=== PATIENT | male | born 1950 | race Caucasian/White ===

== ENCOUNTER 2019-03-12 19:30 | Outpatient (CLI) | payer MEDICARE | END 2019-03-12 19:31 | disposition home or self-care (01) | LOC: SLEEPLAB 19:30 | PROVIDERS: ATTEND Internal Medicine Critical Care Medicine | DX: G47.33 Obstructive sleep apnea (adult) (pediatric) (principal); I10 Essential (primary) hypertension; E11.9 Type 2 diabetes mellitus without complications | CPT/HCPCS: 95811 ==

== ENCOUNTER 2019-09-06 15:28 | Outpatient (CLI) | payer MEDICARE, OTHER ==
[2019-09-06 16:55] LABS: Hemoglobin 12.4 g/dL (14.0-18.0); Mean Corpuscular HGB CONC 32.3 g/dL (32.0-36.0); Mean Corpuscular Hemoglobin 29.8 pg (27.0-31.0); Mean Corpuscular Volume 92.4 fL (78.0-98.0); Mean Platelet Volume 7.5 fL (7.4-10.4); Platelet Count 259 thou/uL (130-400); RBC Distribution Width 12.9 % (11.5-14.5); Red Blood Cell (RBC) Count 4.17 mill/uL (4.70-6.10); White Blood Cell (WBC) Count 10.6 thou/uL (4.8-10.8)
[2019-09-06 17:17] LABS: Anion Gap 13 mmol/L (10-20); BUN (Urea Nitrogen) 20 mg/dL (8.4-25.7); Calc. Creatinine Clearance 0 mL/min (70-130); Calcium 9.1 mg/dL (7.8-10.44); Carbon Dioxide 25 mmol/L (23-31); Chloride 101 mmol/L (98-107); Estimated GFR-MDRD 44; Glucose 177 mg/dL (80-115); Potassium 4.4 mmol/L (3.5-5.1); Sodium 135 mmol/L (136-145)
[2019-09-07 11:52] LABS: SARS-CoV-2 MS2 Positive; SARS-CoV-2 N Gene Negative; SARS-CoV-2 S Gene Negative; SARS-CoV-2 orf1ab Negative
== END 2019-09-06 15:29 | disposition home or self-care (01) ==
LOC: LABBT 15:28
PROVIDERS: ATTEND Thoracic Surgery (Cardiothoracic Vascular Surgery)
DX: Z01.812 Encounter for preprocedural laboratory examination (principal); Z11.59 Encounter for screening for other viral diseases; I73.9 Peripheral vascular disease, unspecified
CPT/HCPCS: 80048; 85027; U0003; 87635

== ENCOUNTER 2019-09-08 05:56 | Day surgery (SDC) | payer MEDICARE ==
[2019-09-06 15:39] VITALS: BMI 29.9
[2019-09-08] MEDS ORDERED: Heparin 0 ML ONE (06:43)
[2019-09-08] MEDS ORDERED: Heparin 10,000 UNITS/1 ML VIAL ONE ×3 (08:28→08:50)
[2019-09-08] MEDS ORDERED: hydrALAZINE 20 MG/ML VIAL ONE ×2 (08:35→10:49)
[2019-09-08] MEDS ORDERED: Protamine Sulfate 50 MG/5 ML VIAL ONE (08:47)
[2019-09-08] MEDS ORDERED: Clopidogrel Bisulfate 300 MG TAB ONE (08:47)
[2019-09-08] MEDS ORDERED: Iopamidol 370 76% 50 ML VIAL FS ONE (09:39)
--- NOTE | 2019-09-08 14:13 | OP ---
DATE OF PROCEDURE: 09/08/2019 PREOPERATIVE DIAGNOSIS: Ischemic ulcer, right foot. POSTOPERATIVE DIAGNOSIS: Ischemic ulcer, right foot. PROCEDURE PERFORMED: Aortogram, bilateral lower extremity runoff with angioplasty and stenting of the right popliteal artery with a 6 x 40 Innova posted with a 5 mm balloon. DESCRIPTION OF PROCEDURE: After prepping and draping the left groin, ultrasound-guided puncture was performed and a 5-Japanese dilator and sheath placed over a wire with some resistance due to scar tissue in the groin. Contra catheter was then advanced into the aorta, where an aortoiliac angiography obtained and then the Contra with the help of a PureForge guidewire was advanced into the right common femoral artery, where runoff of the right leg was obtained. Following this, the Contra catheter was removed over a wire and a 6-Japanese Destination sheath advanced over the iliac bifurcation into the proximal common femoral artery. After heparinization, the fem-pop graft on the right was utilized to advance a wire into the distal popliteal artery below the knee. A 3 x 60 mustang balloon was used to pre-dilate the stenosis, following which a 5 x 40 balloon was used to dilate the stenosis. Result was suboptimal, and a 6 x 40 Innova stent was then deployed and posted with a 5 mm balloon. Result was satisfactory. FINDINGS: Both hypogastric arteries are occluded and both common and external iliac arteries are patent. Right common femoral and right profunda are widely patent with a patent fem-pop graft to a popliteal artery above the knee, where there were 2 high-grade stenosis in the 70% and 90% range. Following which, there was single-vessel runoff via the anterior tibial, which had its own stenosis of about 70%. Following completion of stenting, there was no residual stenosis in the popliteal artery. Stent was deployed above the knee joint. The left common femoral was widely patent from previous endarterectomy and the left SFA was patent with high-grade disease, and then, fairly normal popliteal artery below the knee. Profunda femoral artery had a high-grade stenosis about a centimeter from its origin. Job ID: [id number]
== END 2019-09-08 15:16 | disposition home or self-care (01) ==
LOC: CCL 05:56
PROVIDERS: ATTEND Thoracic Surgery (Cardiothoracic Vascular Surgery)
PROC: 047M3DZ Dilation of Right Popliteal Artery with Intraluminal Device, Percutaneous Approach (ICD-10-PCS; principal; 2019-09-08)
DX: E11.51 Type 2 diabetes mellitus with diabetic peripheral angiopathy without gangrene (principal); L97.519 Non-pressure chronic ulcer of other part of right foot with unspecified severity; I70.235 Atherosclerosis of native arteries of right leg with ulceration of other part of foot; I70.202 Unspecified atherosclerosis of native arteries of extremities, left leg; G47.30 Sleep apnea, unspecified; M19.90 Unspecified osteoarthritis, unspecified site; I11.9 Hypertensive heart disease without heart failure; E11.40 Type 2 diabetes mellitus with diabetic neuropathy, unspecified; Z87.891 Personal history of nicotine dependence; Z79.02 Long term (current) use of antithrombotics/antiplatelets; Z79.4 Long term (current) use of insulin; Z79.82 Long term (current) use of aspirin; Z79.899 Other long term (current) drug therapy; Z88.0 Allergy status to penicillin; Z95.1 Presence of aortocoronary bypass graft; Z90.2 Acquired absence of lung [part of]; Z95.820 Peripheral vascular angioplasty status with implants and grafts
CPT/HCPCS: 36416; 37226; 76942; C1725; C1769; J0360; J1644; J2720; Q9967

== ENCOUNTER 2019-10-12 20:24 | Inpatient (IN) | payer MEDICARE, OTHER ==
[~2019-10-12 20:24] MED LIST: Heparin 1,000 UNITS/ML VIAL ONE
[2019-10-12] MEDS ORDERED: Cefepime 2 GM VIAL ONE (21:22)
[2019-10-12] MEDS ORDERED: Vancomycin HCl 1.25 GM in Sodium Chloride 0.9% 250 ML 250 ML IVPB SCH (21:30)
[2019-10-12 21:59] LABS: #Lymphocytes 2.2 thou/uL (1.20-3.40); #Monocytes 1.5 thou/uL (0.11-0.59); #Neutrophils 15.1 thou/uL (1.40-6.50); %Basophils 0.2 % (0.0-1.0); %Eosinophils 0.1 % (0.0-10.0); %Lymphocytes 11.7 % (21.0-51.0); %Monocytes 7.7 % (0.0-10.0); %Neutrophils 80.3 % (42.0-75.0); Mean Corpuscular HGB CONC 32.8 g/dL (32.0-36.0); Mean Corpuscular Hemoglobin 29.2 pg (27.0-31.0); Platelet Count 313 thou/uL (130-400); RBC Distribution Width 12.7 % (11.5-14.5); Red Blood Cell (RBC) Count 3.09 mill/uL (4.70-6.10); White Blood Cell (WBC) Count 18.8 thou/uL (4.8-10.8)
--- NOTE | 2019-10-12 22:07 | RAD ---
EXAM: CHEST ONE VIEW HISTORY: Dyspnea, weakness, and fever. Vomiting. COMPARISON: 10/13/2018. FINDINGS: A marker for this chest x-ray was not provided as to the correct side. However, there was evidence of a left-sided aortic arch on prior exam. Postoperative changes related to median sternotomy are again seen. Cardiac silhouette is magnified by projection, but the cardiac silhouette does appear mil dly enlarged. Pulmonary vasculature is within normal limits. Lungs are clear. No other interval change. IMPRESSION: No acute cardiopulmonary process.
--- NOTE | 2019-10-12 22:11 | RAD ---
Exam: XR Foot Rt 3 View STANDARD HISTORY: Fever. Infection right foot. COMPARISON: None FINDINGS: There is subcutaneous soft tissue swelling seen anterior to the right ankle and along the right anter olateral aspect of the mid foot. There is suggestion of a soft tissue defect likely related to wound at the lateral aspect of the midfoot with subcutaneous emphysema seen which may be related to t he wound versus gas-forming organism. No fracture is seen. No osseous irregularity is identified to suggest osteomyelitis based on radiographic evaluation. Vasc ular calcifications are seen at the distal ankle and involving the foot. IMPRESSION: Subcutaneous soft tissue swelling and subcutaneous emphysema involving the right anterolateral aspect of the ankle and midfoot. Subcutaneous emphysema may be attributable to what appears to be a soft tissue defect/wound at the lateral aspect of the right midfoot. Subcutaneous emphysema related to gas -forming organism is a possibility. No definite acute osseous abnormality is seen.
[2019-10-12 22:21] LABS: ALT (SGPT) 13 U/L (8-55); AST (SGOT) 18 U/L (5-34); Albumin 3.1 g/dL (3.4-4.8); Alkaline Phosphatase 87 U/L (40-110); Anion Gap 12 mmol/L (10-20); BUN (Urea Nitrogen) 22 mg/dL (8.4-25.7); Bilirubin, Total 0.3 mg/dL (0.2-1.2); Calc. Creatinine Clearance 0 mL/min (70-130); Carbon Dioxide 19 mmol/L (23-31); Chloride 100 mmol/L (98-107); Estimated GFR-MDRD 46; Glucose 215 mg/dL (80-115); Potassium 3.5 mmol/L (3.5-5.1); Protein, Total 7.1 g/dL (5.8-8.1); Sodium 127 mmol/L (136-145)
[2019-10-12 22:43] LABS: CKMB 1.2 ng/mL (0-6.6)
--- NOTE | 2019-10-12 22:44 | PDOC.HHP ---
Hospitalist HPI - History of Present Illness Fever History of Present Illness: 69yo male with CAD s/p CABG, DMII, HTN, PVD, CHF presents for fever. His neighbor found him down. Reports he fell due to weakness and fatigue. No LOC, did not hit his head. He started feeling bad last and running a fever. SOB has slowly progressed. Also reports left sided chest pain. Not worse with exertion. Endorses fever and chills. Temp of 103.4 today. Denies cough, loss of smell/taste. Unsure if he has orthopnea or paroxysmal dyspnea. He has a wound on his right foot. Reports his PCP sent him in some antibiotics today but he did not pick them up. Hospitalist Results - Labs Result Diagrams: 10/12/19 21:31 10/12/19 21: Lab results: WBC 18.8 thou/uL (4.8-10.8) H 10/12/19 21:31 Hgb 9.0 g/dL (14.0-18.0) L 10/12/19 21: Hct 27.5 % (42.0-52.0) L 10/12/19 21: MCV 89.0 fL (78.0-98.0) 10/12/19 21: Plt Count 313 thou/uL (130-400) 10/12/19 21: Neutrophils % 80.3 % (42.0-75.0) H 10/12/19 21:31 ESR Westergren 72 mm/hr (Less than 20) 10/12/19 21: Sodium 127 mmol/L (136-145) L 10/12/19 21: Potassium 3.5 mmol/L (3.5-5.1) 10/12/19 21: Chloride 100 mmol/L (98-107) 10/12/19 21: Carbon Dioxide 19 mmol/L (23-31) L 10/12/19 21: BUN 22 mg/dL (8.4-25.7) 10/12/19 21: Creatinine 1.52 mg/dL (0.7-1.3) H 10/12/19 21:31 Glucose 215 mg/dL (80-115) H 10/12/19 21:31 Lactic Acid 1.0 mmol/L (0.5-2.2) 10/12/19 21:31 Calcium 8.0 mg/dL (7.8-10.44) 10/12/19 21: Total Bilirubin 0.3 mg/dL (0.2-1.2) 10/12/19 21:31 AST 18 U/L (5-34) 10/12/19 21: ALT 13 U/L (8-55) 10/12/19 21: Alkaline Phosphatase 87 U/L (40-110) 10/12/19 21: Troponin I 0.110 ng/mL (< 0.028) H 10/12/19 21:31 B-Natriuretic Peptide 138.5 pg/mL (0-100) H 10/12/19 21:31 Serum Total Protein 7.1 g/dL (5.8-8.1) 10/12/19 21: Albumin 3.1 g/dL (3.4-4.8) L 10/12/19 21:31
[2019-10-12] MEDS ORDERED: Vancomycin 1 GM in Premix Bag 1 BAG IVPB SCH (23:45)
[2019-10-12] MEDS ORDERED: Senokot S 8.6-50 MG TAB PO PRN (23:52)
[2019-10-12] MEDS ORDERED: HYDROcodone/Acetaminophen 5/325 mg Tablet PO PRN (23:52)
[2019-10-12] MEDS ORDERED: Ondansetron ODT 4 MG TAB PO PRN (23:52)
[2019-10-12] MEDS ORDERED: Calcium Carbonate 500 MG ChewTAB PO PRN (23:52)
[2019-10-13] MEDS ORDERED: Dextrose 5% in Water 1,000 ML IV PRN
[2019-10-13] MEDS ORDERED: Dextrose 50% Abboject 50 ML SYRINGE SLOW IVP PRN
[2019-10-13] MEDS ORDERED: Aspirin 325 MG TAB PO SCH (00:30)
[2019-10-13] MEDS: Sodium Chloride 0.9% 1,000 ML IV SCH ×2 (01:31→12:16)
--- NOTE | 2019-10-13 01:50 | HP ---
PRIMARY CARE PHYSICIAN: Dr. Freeman at [facility]. CHIEF COMPLAINT: Fever and generalized weakness. HISTORY OF PRESENT ILLNESS: The patient is a 69-year-old male with past medical history for diabetes, type 2, insulin dependent; PVD; CAD; hypertension; hyperlipidemia; CHF; who presents for the above complaint. The patient reports a history of nonhealing diabetic foot ulcer to the right medial aspect of his right foot for the past 2 years. He has been seeing Wound Care Therapy approximately once every 3 weeks. He reports that he last saw them about a week ago. He reports over the last week that he has been feeling generally weak. He noticed that he has been having chills. He believes associated subjective fever. This has been going on since last . He reports that he became so weak today, actually laid down on the floor of his trailer. His neighbor happened to come over and found him on the ground. He says he was there for approximately 1 hour. He denies that he hit his head. He denies any LOC. He denies any vomiting. He reports that he simply laid down, because he was too weak to even walk. He called his PCP this morning, who prescribed antibiotics, which he was unable to fill the prescription. He also reports some associated chest pain and shortness of breath for approximately one week. Chest pain is located mid sternal and left sided, describes as a squeezing pressure. It is intermittent. Exacerbated and relieved by nothing. He denies any lightheadedness. He denies any heart palpitation or lower extremity swelling. He denies any recent cough. Currently on exam, his chest pain is resolved. For the above reasons, his neighbor called EMS. When EMS arrived on the scene, the patient was febrile with 103.1 temperature, hypotensive and tachycardic. Initially, he was given 2 L normal saline, 1 g Tylenol. After given IV fluids, his blood pressure improved. In the ER, EKG was normal sinus rhythm, heart rate 77 with PACs. Initial troponin 0.110. CK-MB is 1.2. BNP was 138.5. Chest x-ray was negative for any acute process. The patient had a white blood cell count of 18.8. His sedimentation rate was 72. Lactic acid was 1.0. X-ray of his right foot showed subcutaneous soft tissue swelling and subcutaneous emphysema involving the right anterolateral aspect of the ankle and midfoot. Subcutaneous emphysema may be attributable to what appears to be a soft tissue defect or wound at the lateral aspect of the right mid-foot; however, subcutaneous emphysema related to gas-forming organisms is a possibility. No definite acute osseous abnormality is seen. The patient also had a sodium of 127, glucose of 205, and a creatinine of 1.52. The patient was given vancomycin and cefepime IV piggyback, and will be admitted to the floor. PAST MEDICAL HISTORY: 1. CAD x2 stents. 2. CABG x3. 3. Diabetes, type 2, insulin dependent. 4. Hypertension. 5. Hyperlipidemia. 6. PVD x1 stent in the right lower extremity. 7. CHF. PAST SURGICAL HISTORY: 1. CABG x3 in 2004. 2. Left foot partial amputation. SOCIAL HISTORY: The patient lives in [place] alone in a trailer. He is a former tobacco user, quit 10 years ago. Denies any illicit drug use. Denies any alcohol intake. He normally walks, ambulates without any assistive devices, but over the past several days, was using a wheelchair. FAMILY HISTORY: Noncontributory for cardiac disease, contributory for diabetes. ALLERGIES: PENICILLIN. HOME MEDICATIONS: The patient was unable to reconcile home medications at bedside. REVIEW OF SYSTEMS: All review of systems are negative unless otherwise stated in the HPI. PHYSICAL EXAMINATION: VITAL SIGNS: Temperature 100.1, blood pressure 139/69, pulse 82, respirations 18, and 97% on room air. Pain scale, 6/10. CONSTITUTIONAL: The patient is alert and oriented to person, place, and time. In no acute distress. Appears uncomfortable. HEAD: Atraumatic and normocephalic. EYES: Pupils are equal, round, and reactive to light. Extraocular muscles are intact. ENT: Nose, normal exam, no nasal deformity, no bleeding from the nares. Oropharynx is clear. Uvula, midline. Dry mucous membranes. No oral lesions. NECK: Supple. Trachea midline. No JVD. No cervical adenopathy. No neck stiffness. RESPIRATORY: Respirations are regular, even, and nonlabored. No wheezes, rhonchi, or rales. CARDIOVASCULAR: S1, S2. Regular rate and rhythm. No murmurs, rubs, or gallops. ABDOMEN: Soft, nontender. Active bowel sounds. No peritoneal signs. No rigidity. No guarding. No rebound. BACK: Full range of motion. No central spinous tenderness. No CVA tenderness. UPPER EXTREMITIES: Bilateral upper extremities, full range of motion, normal strength, sensation intact, palpable radial pulses. Lower extremities, the left foot has a partial amputation. Skin is clean, dry, and intact. Right foot has a nonhealing diabetic foot ulcer to the right medial aspect of the mid-foot, approximately 6 x 4 cm. It is malodorous with purulent drainage. NEUROLOGIC: Alert and oriented to person, place, and time. Speech normal. No focal deficits. No sensory deficits. SKIN: Clean, dry, and intact. PSYCHIATRIC: Normal affect. The patient is alert and oriented to person, place , and time. DIAGNOSTIC AND LABORATORY DATA: EKG, normal sinus rhythm at 77 with some PACs. Troponin 0.110. CK-MB 1.2. BNP 138.5. Chest x-ray, negative for any acute process. Sodium 127, potassium 3.5, chloride 100, CO2 19, BUN 22, creatinine 1.52, glucose 215. Lactic acid 1.0, T bilirubin 0.3, AST 18, ALT 13, alkaline phosphatase 87, albumin 3.1. WBCs 18.8, hemoglobin 9, hematocrit 27.5, platelets 313. X- ray of the right foot, subcutaneous soft tissue swelling and subcutaneous emphysema involving the right anterolateral aspect of the ankle and mid-foot, which may be attributable to soft tissue defect or wound at the right midfoot, but cannot exclude gas-forming organism. IMPRESSION AND PLAN: 1. Nonhealing diabetic foot ulcer. We will admit the patient to the telemetry floor for inpatient status. Expected length of stay greater than 2 midnights. The patient initially presented febrile, hypotensive. Lactic acid was 1.0, WBCs 18.8, ESR 72. X-ray of right foot, positive for subcutaneous emphysema and soft tissue swelling. Blood cultures and urine cultures are pending. We will continue vancomycin and cefepime. We will consult General Surgery and Wound Care. Order MRI and a CRP. Make the patient n.p.o. after midnight. We will continue IV fluid resuscitation, analgesics p.r.n. 2. Right foot cellulitis, likely secondary to problem #1. 3. Chest pain. On exam, the patient's chest pain was resolved. The patient's HEART score of 3, low risk. Chest pain has been ongoing for one week. Initial troponin 0.110. CK-MB 1.2. BNP 138.5. Chest x-ray negative for any acute process. EKG was normal sinus rhythm at [address] elevations. Most likely demand ischemia will trend troponins and treat accordingly. 4. Hyponatremia. The patient presented with sodium of 127, corrected for glucose of 205. Sodium corrected was 129. We will continue IV fluid hydration. We will recheck labs in the a.m. 5. Acute kidney injury. The patient presented with a creatinine of 1.52, baseline appears to be one other number of 1.57 in August. We will continue IV fluid hydration, and we will recheck in a.m. 6. Diabetes, type 2, insulin dependent. The patient reports taking 45 units of Levemir at night and 50 units in the a.m. The patient presented with a glucose of 205. The patient will be n.p.o. after midnight. We will hold insulin for now. We will start aggressive sliding scale with Accu-Cheks a.c. and at bedtime. 7. Peripheral vascular disease. The patient reports a single stent below the right knee. 8. Coronary artery disease. 9. Congestive heart failure. 10. Heparin for deep venous thrombosis prophylaxis. Protonix for gastrointestinal prophylaxis. The patient is a full code. BRE is his brother, Stevie Tracy, he did not give the telephone number. Discussed the case with Dr. Rosas Odom. Job ID: [id number] MTDD
[2019-10-13 01:55] LABS: Troponin I 0.103 ng/mL (< 0.028)
[2019-10-13 04:55] LABS: #Lymphocytes 2.5 thou/uL (1.20-3.40); #Monocytes 1.2 thou/uL (0.11-0.59); #Neutrophils 11.2 thou/uL (1.40-6.50); %Basophils 0.3 % (0.0-1.0); %Eosinophils 0.1 % (0.0-10.0); %Lymphocytes 16.9 % (21.0-51.0); %Monocytes 8.1 % (0.0-10.0); %Neutrophils 74.6 % (42.0-75.0); Hemoglobin 10.9 g/dL (14.0-18.0); Mean Corpuscular HGB CONC 32.2 g/dL (32.0-36.0); Mean Corpuscular Hemoglobin 29.1 pg (27.0-31.0); Mean Corpuscular Volume 90.4 fL (78.0-98.0); Platelet Count 252 thou/uL (130-400); Red Blood Cell (RBC) Count 3.73 mill/uL (4.70-6.10)
[2019-10-13 05:00] LABS: INR-International Normal Ratio 1.3
[2019-10-13 05:35] LABS: Anion Gap 13 mmol/L (10-20); BUN (Urea Nitrogen) 20 mg/dL (8.4-25.7); Calc. Creatinine Clearance 69 mL/min (70-130); Calcium 8.2 mg/dL (7.8-10.44); Carbon Dioxide 19 mmol/L (23-31); Chloride 107 mmol/L (98-107); Estimated GFR-MDRD 54; Glucose 181 mg/dL (80-115); Potassium 3.4 mmol/L (3.5-5.1); Sodium 136 mmol/L (136-145)
[2019-10-13 05:40] LABS: Troponin I 0.104 ng/mL (< 0.028)
[2019-10-13] MEDS: Aspirin 81 mg Enteric Coated Tablet PO SCH (08:19)
[2019-10-13] MEDS: Heparin 5,000 UNITS/ML VIAL SC SCH ×2 (08:20→20:30)
[2019-10-13] MEDS ORDERED: Prevnar 13-Val Conj/PF 0.5 ML SYRINGE IM ONE (09:00)
[2019-10-13] MEDS: Vancomycin HCl 750 MG in Sodium Chloride 0.9% 250 ML 250 ML IVPB SCH ×2 (09:17→20:30)
[2019-10-13] MEDS: Cefepime 2 GM in Sodium Chloride 0.9% 100 ML IVPB SCH ×2 (11:02→23:18)
[2019-10-13 14:27] LABS: SARS-CoV-2 MS2 Positive; SARS-CoV-2 N Gene Negative; SARS-CoV-2 S Gene Negative; SARS-CoV-2 orf1ab Negative
--- NOTE | 2019-10-13 16:12 | MRI ---
MRI Lower Ext Jt Rt WO Con History: Osteomyelitis Comparison: Radiograph prior day Findings: Bones: No abnormal focal area of marrow signal replacement to suggest osteomyelitis. Muscles: Abnormal edema throughout the musculature of the foot, likely diabetic myositis. Evaluation for pyomyositis is limited without intravenous contrast. There is extrusion of the abductor hallucis muscle belly through dillon soft tissue defect with overlying soft tissue gas and irregularity the muscle belly. There Is also partial tear of the myotendinous junction abductor hallucis muscle. Tendons: Abnormal gas along the tibialis anterior tendon sheath from the medial cuneiform/first metat arsal insertion tracking along the midfoot and hindfoot. This is also seen extending to the ankle. Further propagation is not excluded although as not definitively seen on the prior radiograph. Soft tissues: Deep ulcer medial plantar midfoot at the great toe tarsometatarsal joint. Impression: 1. No evidence for osteomyelitis. 2. Relatively deep soft tissue ulcer medial aspect of the midfoot at the tarsometatarsal joint. There is herniation of abductor hallucis muscle through this defect with myotendinous tearing and associated myositis containing small foci of gas. 3. Given the close proximity of the defect with the tibialis anterior tendon, there is tracking of ga s along the tibialis anterior anterior tendon sheath from the forefoot through the mid and hindfoot to the level of the ankle. 4. Global intrinsic muscle diabetic myositis. 5. 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
--- NOTE | 2019-10-13 17:25 | PDOC.HOSPP ---
- Subjective Encounter Date: 10/13/19 Subjective: patient seen on f/u for diabetic foot, pt refers feels ok denies fever chills or nausea - Objective Vital Signs & Weight: Vital Signs (12 hours) Temp Pulse Pulse Resp BP BP Pulse Ox 10/13/19 17:04 97.6 F 73 14 175/77 H 99 10/13/19 15:11 70 176/75 H 10/13/19 12:10 99.6 F 73 18 156/72 H 100 10/13/19 08:20 98.2 F 62 18 100/63 96 Weight Admit Weight 197 lb 3.2 oz Weight 236 lb 9.6 oz I&O: 10/12/19 10/13/19 10/14/19 06:59 06:59 06:59 Intake Total 350 Output Total 775 700 Balance -775 -350 Result Diagrams: 10/13/19 04:44 10/13/19 04:44 Additional Labs: Accuchecks 10/13/19 12:51 POC Glucose 137 H Hospitalist ROS - Review of Systems All other systems reviewed; all pertinent +/- noted in HPI/Subj - Medication Medications: Active Medications Generic Name Dose Route Start Last Admin Trade Name Freq PRN Reason Stop Dose Admin Aspirin 81 mg 10/13/19 09:00 10/13/19 08:19 Ecotrin PO 81 mg DAILY VERÓNICA Administration Heparin Sodium (Porcine) 5,000 units 10/13/19 09:00 10/13/19 08:20 Heparin SC 5,000 units BID VERÓNICA Administration Sodium Chloride 1,000 mls @ 75 mls/hr 10/12/19 23:59 10/13/19 12:16 Normal Saline 0.9% IV 1,000 mls .[id number] VERÓNICA Administration Cefepime HCl 2 gm/ Sodium 100 mls @ 200 mls/hr 10/13/19 10:00 10/13/19 11:02 Chloride IVPB 100 mls 1000,2200 VERÓNICA Administration Vancomycin HCl 750 mg/ Sodium 250 mls @ 250 mls/hr 10/13/19 08:00 10/13/19 09 :17 Chloride IVPB 250 mls 0800,2000 VERÓNICA Administration - Exam General Appearance: NAD, awake alert Eye: PERRL, anicteric sclera ENT: normocephalic atraumatic, no oropharyngeal lesions Neck: supple, symmetric, no JVD Heart: RRR, no murmur, no gallops Respiratory: CTAB, no wheezes, no rales Gastrointestinal: soft, non-tender, non-distended Extremities: no cyanosis, no clubbing Extremities - other findings: b/l ulcers Skin: normal turgor, no lesions Neurological: cranial nerve grossly intact, normal sensation to touch Musculoskeletal: normal tone, normal strength Psychiatric: normal affect, normal behavior, A&O x 3 Hosp A/P (1) Diabetic foot infection Code(s): E11.628 - TYPE 2 DIABETES MELLITUS WITH OTHER SKIN COMPLICATIONS; L08.9 - LOCAL INFECTION OF THE SKIN AND SUBCUTANEOUS TISSUE, UNSP Status: Acute (2) Diabetes Code(s): E11.9 - TYPE 2 DIABETES MELLITUS WITHOUT COMPLICATIONS Status: Acute (3) HTN (hypertension) Code(s): I10 - ESSENTIAL (PRIMARY) HYPERTENSION Status: Acute (4) KINSEY (acute kidney injury) Code(s): N17.9 - ACUTE KIDNEY FAILURE, UNSPECIFIED Status: Acute (5) Hyponatremia Code(s): E87.1 - HYPO-OSMOLALITY AND HYPONATREMIA Status: Acute (6) Cellulitis Code(s): L03.90 - CELLULITIS, UNSPECIFIED Status: Acute - Plan - continue vanc + cefe - surgery consulted will follow recommendations - wound care - continue accuchecks, ss and long acting insulin - hyponatremia resolved - renal function improving continue ivfs f/u bmps - b/c negative - wound culture multiple organism low sensitivity - mri w/o OM, gas present, surgery was consulted - troponin mildly elevated, stable w/o trending up likely leak due to infection & kinsey - blood pressure uncontrolled will add amlodipine, will follow and adjust as necessary
[2019-10-13] MEDS: Gabapentin 300 MG CAP PO SCH (20:30)
[2019-10-13] MEDS: HumaLOG 300 UNITS/3 ML VIAL SC PRN (20:31)
[2019-10-13] MEDS: HYDROcodone/Acetaminophen 5/325 mg Tablet PO PRN (20:54)
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
[2019-10-14] MEDS: Acetaminophen 325 MG TAB PO PRN ×2 (03:38→16:13)
[2019-10-14 04:50] LABS: Hemoglobin A1c 11.4 % (4.0-6.0)
[2019-10-14 05:06] LABS: Anion Gap 13 mmol/L (10-20); BUN (Urea Nitrogen) 14 mg/dL (8.4-25.7); Calc. Creatinine Clearance 81 mL/min (70-130); Calcium 7.8 mg/dL (7.8-10.44); Carbon Dioxide 20 mmol/L (23-31); Chloride 101 mmol/L (98-107); Estimated GFR-MDRD 53; Glucose 301 mg/dL (80-115); Potassium 3.5 mmol/L (3.5-5.1); Sodium 130 mmol/L (136-145)
[2019-10-14] MEDS: HumaLOG 300 UNITS/3 ML VIAL SC PRN ×2 (06:32→21:32)
[2019-10-14 06:50] LABS: Band 9 % (5-11); Hemoglobin 10.5 g/dL (14.0-18.0); Lymphocytes 30 % (21-51); MDiff Complete? YES; Mean Corpuscular HGB CONC 32.5 g/dL (32.0-36.0); Mean Corpuscular Hemoglobin 29.2 pg (27.0-31.0); Mean Corpuscular Volume 89.8 fL (78.0-98.0); Mean Platelet Volume 7.8 fL (7.4-10.4); Monocytes 6 % (0-10); Myelocyte 2 % (0-0); Neutrophil 53 % (42-75); Platelet Count 275 thou/uL (130-400); RBC Distribution Width 13.1 % (11.5-14.5)
[2019-10-14 07:13] LABS: Vancomycin, Trough 11.2 ug/mL
[2019-10-14] MEDS: Sodium Chloride 0.9% 1,000 ML IV SCH (08:44)
[2019-10-14] MEDS: Aspirin 81 mg Enteric Coated Tablet PO SCH (08:52)
[2019-10-14] MEDS: Heparin 5,000 UNITS/ML VIAL SC SCH ×2 (08:52→21:27)
[2019-10-14] MEDS: Amlodipine 10 MG TAB PO SCH (08:52)
[2019-10-14] MEDS: Gabapentin 300 MG CAP PO SCH ×2 (08:52→14:44)
[2019-10-14] MEDS ORDERED: Vancomycin 1 GM in Premix Bag 1 BAG IVPB SCH (09:00)
[2019-10-14] MEDS: Vancomycin HCl 750 MG in Sodium Chloride 0.9% 250 ML 250 ML IVPB SCH (09:01)
[2019-10-14] MEDS: Cefepime 2 GM in Sodium Chloride 0.9% 100 ML IVPB SCH ×2 (10:57→23:25)
[2019-10-14] MEDS: HumaLOG 300 UNITS/3 ML VIAL SC SCH ×2 (12:10→17:43)
--- NOTE | 2019-10-14 12:44 | PRG ---
DATE OF SERVICE: 10/14/2019 SUBJECTIVE: Mr. Tracy is seen today in his bed on the telemetry floor with the Wound Care Team. The ulcer on the medial aspect of his right foot is again examined. There is a liquefactive necrosis in some of the tissue to the anterior aspect of the wound. This was sharply debrided/excised using a scalpel. I debrided the skin, subcutaneous tissue, fascia, tendon, and muscle. There was again no foul smell within the wound, nor was there definite purulence. It was undermined under the skin anteriorly extending for about 1.5 cm. To allow appropriate wound care of this, I therefore opened the skin sharply. This was done without anesthetic as he has a dense neuropathy. Bone was not exposed; however, there is minimal tissue overlying the bones of the midfoot. I also checked the pulses with the Doppler. He has weakly monophasic signals of both the dorsalis pedis and posterior tibial with the Doppler. There are no palpable pulses. Since Dr. Perea did a vascular intervention on him about a month ago, I will make him aware of this on Wednesday when he returns. For today, the wound was packed with a gauze as I felt that there may be some bleeding from the fresh incisions if we placed a wound VAC. I will ask Wound Care Team to place a wound VAC tomorrow. OBJECTIVE: On examination, he does have an elevated temperature of 100.3, pulse of 77, and blood pressure of 146/70. LABORATORY DATA: Decreasing white blood cell count, that is 12.0 today, with a hemoglobin of 10.5. Chemistries show essentially stable electrolytes with significantly elevated blood sugars. His hemoglobin A1c is markedly elevated at 11.4. PLAN: I would continue antibiotics and wound care for now. He may end up requiring discharge to a facility to allow for appropriate care as I am uncertain that he is able to care for himself appropriately at his trailer home where he lives by himself. Job ID: [id number]
--- NOTE | 2019-10-14 15:26 | PDOC.HOSPP ---
- Subjective Encounter Date: 10/14/19 Encounter Time: 08:00 Subjective: no overnight events. this morning, complains of increased peripheral burning pain. has no other complaints. Pending placement in snf assuming no further intervention - Objective Vital Signs & Weight: Vital Signs (12 hours) Temp Pulse Resp BP Pulse Ox 10/14/19 12:43 98.6 F 96 14 120/71 96 10/14/19 08:52 77 10/14/19 07:12 97 10/14/19 07:08 100.3 F H 77 14 146/70 H 98 10/14/19 03:41 100.1 F H 82 18 163/74 H 96 Weight Admit Weight 197 lb 3.2 oz Weight 236 lb 3.2 oz I&O: 10/13/19 10/14/19 10/15/19 06:59 06:59 06:59 Intake Total 1350 Output Total 775 1600 Balance -185 -696 Result Diagrams: 10/14/19 04:35 10/14/19 04:35 Additional Labs: Accuchecks 10/14/19 10/14/19 10/13/19 10:33 05:49 20:23 POC Glucose 278 H 336 H 299 H 10/13/19 16:55 POC Glucose 149 H Hospitalist ROS - Review of Systems Constitutional: denies: fever, chills, sweats, weakness, malaise, other Respiratory: denies: cough, dry, shortness of breath, hemoptysis, SOB with excertion, pleuritic pain, sputum, wheezing, other Cardiovascular: denies: chest pain, palpitations, orthopnea, paroxysmal noc. dyspnea, edema, light headedness, other Gastrointestinal: denies: nausea, vomiting, abdominal pain, diarrhea, constipation, melena, hematochezia, other - Medication Medications: Active Medications Generic Name Dose Route Start Last Admin Trade Name Freq PRN Reason Stop Dose Admin Acetaminophen 650 mg 10/12/19 23:52 10/14/19 03:38 Tylenol PO 650 mg Q4H PRN Administration Headache/Fever/Mild Pain (1-3) Hydrocodone Bitart/Acetaminophen 2 tab 10/12/19 23:52 10/13/19 20:54 [place] 5/325 PO 2 tab Q4H PRN Administration Severe Pain (7-10) Amlodipine Besylate 10 mg 10/14/19 09:00 10/14/19 08:52 Norvasc PO 10 mg DAILY VERÓNICA Administration Aspirin 81 mg 10/13/19 09:00 10/14/19 08:52 Ecotrin PO 81 mg DAILY VERÓNICA Administration Gabapentin 300 mg 10/13/19 21:00 10/14/19 14:44 Neurontin PO 300 mg TID VERÓNICA Administration Heparin Sodium (Porcine) 5,000 units 10/13/19 09:00 10/14/19 08:52 Heparin SC 5,000 units BID VERÓNICA Administration Cefepime HCl 2 gm/ Sodium 100 mls @ 200 mls/hr 10/13/19 10:00 10/14/19 10:57 Chloride IVPB 100 mls 1000,2200 VERÓNICA Administration Vancomycin HCl 1 gm/ Device 200 mls @ 200 mls/hr 10/14/19 09:00 10/14/19 08: 48 IVPB 200 mls 0900,2100 VERÓNICA Administration Insulin Human Lispro 0 units 10/13/19 00:00 10/14/19 06:32 Humalog SC 11 unit .AGGRESSIVE SLIDING PRN Administration Aggressive Correctional Scale Insulin Human Lispro 0 units 10/13/19 00:00 10/13/19 20:31 Humalog SC 3 unit .BEDTIME SLIDING SC PRN Administration Bedtime Correctional Scale Insulin Human Lispro 10 units 10/14/19 12:00 10/14/19 12:10 Humalog SC 10 unit TID-WM VERÓNICA Administration - Exam General Appearance: NAD, awake alert Neck: no JVD Heart: RRR, no murmur, no gallops, no rubs Respiratory: CTAB, no wheezes, no rales, no ronchi Gastrointestinal: soft, non-tender, non-distended, normal bowel sounds Extremities - other findings: clean gauze on both feet; wounds evaled by surgery this morning Neurological: cranial nerve grossly intact Psychiatric: normal affect, normal behavior, A&O x 3 Hosp A/P - Plan #nonhealing foot ulcer s/p debridment -pending additional eval by Dr. Perea -febrile overnight; wound culture growing enterococcus, gram negatives; contine vanc and cefepime #acute hyponatremia -despite correction for hyperglycemia -hold IVF #T2DM -poorly controlled -adjusted diabetic regimen ELOS: 3 midnights pending placement in snf
[2019-10-14 16:24] LABS: Sodium 130 mmol/L (136-145)
[2019-10-14] MEDS ORDERED: Venlafaxine HCl XR 75 MG CAP PO SCH (21:00)
[2019-10-14] MEDS: Gabapentin 400 MG CAP PO SCH (21:27)
[2019-10-14] MEDS: Insulin Glargine 30 UNITS in Pre-Filled Syringe 1 EACH SC SCH (21:28)
[2019-10-14] MEDS: Linezolid 600 MG in Premix Bag 1 BAG IVPB SCH (21:30)
[2019-10-14] MEDS: traZODone HCl 50 MG TAB PO SCH (21:31)
[2019-10-14] MEDS: SYSTANE GEL EYE DROP 10 ML (10 GM) BOT EA EYE PRN (21:42)
[2019-10-15 04:51] LABS: Anion Gap 11 mmol/L (10-20); BUN (Urea Nitrogen) 13 mg/dL (8.4-25.7); Calc. Creatinine Clearance 75 mL/min (70-130); Carbon Dioxide 21 mmol/L (23-31); Chloride 101 mmol/L (98-107); Estimated GFR-MDRD 49; Glucose 297 mg/dL (80-115); Magnesium 1.8 mg/dL (1.6-2.6); Phosphorus 2.2 mg/dL (2.3-4.7); Potassium 3.3 mmol/L (3.5-5.1); Sodium 130 mmol/L (136-145)
[2019-10-15] MEDS: HumaLOG 300 UNITS/3 ML VIAL SC SCH ×3 (07:54→17:41)
[2019-10-15] MEDS: Amlodipine 10 MG TAB PO SCH (08:27)
[2019-10-15] MEDS: Clopidogrel Bisulfate 75 MG TAB PO SCH (08:28)
[2019-10-15] MEDS: Heparin 5,000 UNITS/ML VIAL SC SCH ×2 (08:28→20:37)
[2019-10-15] MEDS: Gabapentin 400 MG CAP PO SCH ×3 (08:28→20:35)
[2019-10-15] MEDS: Aspirin 81 mg Enteric Coated Tablet PO SCH (08:28)
[2019-10-15] MEDS: Linezolid 600 MG in Premix Bag 1 BAG IVPB SCH (08:30)
[2019-10-15] MEDS: SYSTANE GEL EYE DROP 10 ML (10 GM) BOT EA EYE PRN (08:42)
[2019-10-15] MEDS ORDERED: Aspirin 81 mg Enteric Coated Tablet PO SCH (09:00)
[2019-10-15] MEDS ORDERED: Potassium Phosphate 30 MMOL in Sodium Chloride 0.9% 250 ML 250 ML IVPB SCH (09:00)
[2019-10-15] MEDS ORDERED: Vancomycin 1 GM in Premix Bag 1 BAG IVPB SCH (09:30)
[2019-10-15] MEDS: cefTRIAXone\\ROCEPHIN 1 GM in Sodium Chloride 0.9% 100 ML IVPB SCH (11:40)
--- NOTE | 2019-10-15 13:49 | PDOC.HOSPP ---
- Subjective Encounter Date: 10/15/19 Encounter Time: 08:00 Subjective: no overnight events. This morning, feeling well and complains of improved peripheral burning sensation. Otherwise no complaints. - Objective Vital Signs & Weight: Vital Signs (12 hours) Temp Pulse Resp BP Pulse Ox 10/15/19 11:26 99.3 F 95 20 131/68 95 10/15/19 08:27 79 10/15/19 07:08 95 10/15/19 07:04 100.0 F H 80 16 147/70 H 96 10/15/19 04:00 98.1 F 67 20 130/62 98 Weight Admit Weight 197 lb 3.2 oz Weight 202 lb I&O: 10/14/19 10/15/19 10/16/19 06:59 06:59 06:59 Intake Total 1350 2100 Output Total 1600 2350 Balance -250 -250 Result Diagrams: 10/14/19 04:35 10/15/19 03:59 Additional Labs: Accuchecks 10/15/19 10/15/19 10/14/19 11:00 05:40 20:35 POC Glucose 308 H 298 H 290 H 10/14/19 17:10 POC Glucose 335 H Hospitalist ROS - Review of Systems Constitutional: denies: fever, chills, sweats Respiratory: denies: cough, dry, shortness of breath Cardiovascular: denies: chest pain, palpitations, edema, light headedness Gastrointestinal: denies: nausea, vomiting, abdominal pain, diarrhea Genitourinary: denies: dysuria, frequency, incontinence - Medication Medications: Active Medications Generic Name Dose Route Start Last Admin Trade Name Valdoq PRN Reason Stop Dose Admin Acetaminophen 650 mg 10/12/19 23:52 10/14/19 16:13 Tylenol PO 650 mg Q4H PRN Administration Headache/Fever/Mild Pain (1-3) Hydrocodone Bitart/Acetaminophen 2 tab 10/12/19 23:52 10/13/19 20:54 [place] 5/325 PO 2 tab Q4H PRN Administration Severe Pain (7-10) Amlodipine Besylate 10 mg 10/14/19 09:00 10/15/19 08:27 Norvasc PO 10 mg DAILY VERÓNICA Administration Aspirin 81 mg 10/13/19 09:00 10/15/19 08:28 Ecotrin PO 81 mg DAILY VERÓNICA Administration Clopidogrel Bisulfate 75 mg 10/15/19 09:00 10/15/19 08:28 Plavix PO 75 mg DAILY VERÓNICA Administration Gabapentin 800 mg 10/14/19 21:00 10/15/19 08:28 Neurontin PO 800 mg TID VERÓNICA Administration Heparin Sodium (Porcine) 5,000 units 10/13/19 09:00 10/15/19 08:28 Heparin SC 5,000 units BID VERÓNICA Administration Hypromellose 0 gm 10/14/19 19:18 10/15/19 08:42 Systane Gel EA EYE 1 drop Q6H PRN Administration Dry Eyes Insulin Glargine 30 units/ 0.3 mls @ 0 mls/hr 10/14/19 21:00 10/14/19 21:28 Miscellaneous Medication SC 0.3 mls HS VERÓNICA Administration Potassium Phosphate 30 mmol/ 260 mls @ 43.333 mls/hr 10/15/19 09:00 10/15/19 10:26 Sodium Chloride IVPB 10/15/19 14:00 260 mls NOW VERÓNICA Administration Ceftriaxone Sodium 1 gm/ 100 mls @ 200 mls/hr 10/15/19 10:00 10/15/19 11:40 Sodium Chloride IVPB 100 mls Q24HR VERÓNICA Administration Insulin Human Lispro 0 units 10/13/19 00:00 10/14/19 06:32 Humalog SC 11 unit .AGGRESSIVE SLIDING PRN Administration Aggressive Correctional Scale Insulin Human Lispro 0 units 10/13/19 00:00 10/14/19 21:32 Humalog SC 3 unit .BEDTIME SLIDING SC PRN Administration Bedtime Correctional Scale Insulin Human Lispro 10 units 10/14/19 12:00 10/15/19 11:37 Humalog SC 10 unit TID-WM VERÓNICA Administration Trazodone HCl 50 mg 10/14/19 21:00 10/14/19 21:31 Desyrel PO 50 mg HS VERÓNICA Administration - Exam General Appearance: NAD, awake alert Eye: PERRL, anicteric sclera Neck: no JVD Heart: RRR, no murmur, no gallops, no rubs Respiratory: CTAB, no wheezes, no rales, no ronchi, normal chest expansion, no tachypnea Gastrointestinal: soft, non-tender, non-distended, normal bowel sounds Extremities - other findings: clean dressing over both feet Hosp A/P - Plan #nonhealing foot ulcer s/p debridment -pending additional eval by Dr. Perea -fever resolved; susceptibiolites back and antibiotics adjusted #mild asymptomatic acute hyponatremia -despite correction for hyperglycemia -hold IVF #T2DM -poorly controlled -adjusted diabetic regimen ELOS: 3 midnights pending placement in long-term
[2019-10-15] MEDS ORDERED: Potassium Chloride 20 MEQ TAB PO SCH (14:00)
[2019-10-15] MEDS: Acetaminophen 325 MG TAB PO PRN (16:49)
[2019-10-15] MEDS: traZODone HCl 50 MG TAB PO SCH (20:36)
[2019-10-15] MEDS: Melatonin 3 MG TAB PO PRN (20:36)
[2019-10-15] MEDS: Insulin Glargine 30 UNITS in Pre-Filled Syringe 1 EACH SC SCH (20:37)
[2019-10-15] MEDS: Vancomycin 1 GM in Premix Bag 1 BAG IVPB SCH (20:39)
[2019-10-15] MEDS: HumaLOG 300 UNITS/3 ML VIAL SC PRN (20:43)
[2019-10-16 05:04] LABS: Anion Gap 11 mmol/L (10-20); BUN (Urea Nitrogen) 10 mg/dL (8.4-25.7); Calc. Creatinine Clearance 65 mL/min (70-130); Calcium 8.7 mg/dL (7.8-10.44); Carbon Dioxide 25 mmol/L (23-31); Chloride 104 mmol/L (98-107); Estimated GFR-MDRD 49; Glucose 208 mg/dL (80-115); Potassium 3.6 mmol/L (3.5-5.1); Sodium 136 mmol/L (136-145)
[2019-10-16] MEDS: HumaLOG 300 UNITS/3 ML VIAL SC PRN ×2 (05:52→20:58)
[2019-10-16] MEDS: Amlodipine 10 MG TAB PO SCH (09:02)
[2019-10-16] MEDS: Vancomycin 1 GM in Premix Bag 1 BAG IVPB SCH ×2 (09:02→20:59)
[2019-10-16] MEDS: Clopidogrel Bisulfate 75 MG TAB PO SCH (09:02)
[2019-10-16] MEDS: Heparin 5,000 UNITS/ML VIAL SC SCH (09:03)
[2019-10-16] MEDS: Aspirin 81 mg Enteric Coated Tablet PO SCH (09:03)
[2019-10-16] MEDS: HumaLOG 300 UNITS/3 ML VIAL SC SCH ×3 (09:03→16:27)
[2019-10-16] MEDS: Gabapentin 400 MG CAP PO SCH ×3 (09:03→20:57)
[2019-10-16] MEDS: cefTRIAXone\\ROCEPHIN 1 GM in Sodium Chloride 0.9% 100 ML IVPB SCH (12:01)
--- NOTE | 2019-10-16 14:24 | PDOC.HOSPP ---
- Subjective Encounter Date: 10/16/19 Encounter Time: 08:00 Subjective: no overnight events. Last fever 10/14 4pm. this morning, complains of improved peripheral burning sensation. has no other complaints. Wound vac barely draining. - Objective Vital Signs & Weight: Vital Signs (12 hours) Temp Pulse Resp BP Pulse Ox 10/16/19 11:10 98.3 F 97 17 127/65 96 10/16/19 07:31 98.0 F 89 18 121/71 99 10/16/19 04:00 98.4 F 71 18 138/78 94 L Weight Admit Weight 197 lb 3.2 oz Weight 203 lb I&O: 10/15/19 10/16/19 10/17/19 06:59 06:59 06:59 Intake Total 2100 3220 Output Total 2350 3325 Balance -250 -105 Result Diagrams: 10/14/19 04:35 10/16/19 03:53 Additional Labs: Accuchecks 10/16/19 10/16/19 10/15/19 11:20 05:40 20:17 POC Glucose 202 H 265 H 248 H 10/15/19 16:35 POC Glucose 230 H Hospitalist ROS - Review of Systems Constitutional: denies: fever, chills, sweats, weakness, malaise, other Respiratory: denies: cough, dry, shortness of breath, hemoptysis, SOB with excertion, pleuritic pain, sputum, wheezing, other Cardiovascular: denies: chest pain, palpitations, orthopnea, paroxysmal noc. dyspnea, edema, light headedness, other Gastrointestinal: denies: nausea, vomiting, abdominal pain, diarrhea, constipation, melena, hematochezia, other - Medication Medications: Active Medications Generic Name Dose Route Start Last Admin Trade Name Freq PRN Reason Stop Dose Admin Acetaminophen 650 mg 10/12/19 23:52 10/15/19 16:49 Tylenol PO 650 mg Q4H PRN Administration Headache/Fever/Mild Pain (1-3) Hydrocodone Bitart/Acetaminophen 2 tab 10/12/19 23:52 10/13/19 20:54 [place] 5/325 PO 2 tab Q4H PRN Administration Severe Pain (7-10) Amlodipine Besylate 10 mg 10/14/19 09:00 10/16/19 09:02 Norvasc PO 10 mg DAILY VERÓNICA Administration Aspirin 81 mg 10/13/19 09:00 10/16/19 09:03 Ecotrin PO 81 mg DAILY VERÓNICA Administration Clopidogrel Bisulfate 75 mg 10/15/19 09:00 10/16/19 09:02 Plavix PO 75 mg DAILY VERÓNICA Administration Gabapentin 800 mg 10/14/19 21:00 10/16/19 09:03 Neurontin PO 800 mg TID VERÓNICA Administration Hypromellose 0 gm 10/14/19 19:18 10/15/19 08:42 Systane Gel EA EYE 1 drop Q6H PRN Administration Dry Eyes Vancomycin HCl 1 gm/ Device 200 mls @ 200 mls/hr 10/15/19 21:00 10/16/19 09: 02 IVPB 200 mls Q12HR VERÓNICA Administration Ceftriaxone Sodium 1 gm/ 100 mls @ 200 mls/hr 10/15/19 10:00 10/16/19 12:01 Sodium Chloride IVPB 100 mls Q24HR VERÓNICA Administration Insulin Human Lispro 0 units 10/13/19 00:00 10/16/19 05:52 Humalog SC 9 unit .AGGRESSIVE SLIDING PRN Administration Aggressive Correctional Scale Insulin Human Lispro 0 units 10/13/19 00:00 10/15/19 20:43 Humalog SC 2 unit .BEDTIME SLIDING SC PRN Administration Bedtime Correctional Scale Insulin Human Lispro 13 units 10/16/19 12:00 10/16/19 12:01 Humalog SC 13 unit TID-WM VERÓNICA Administration Melatonin 6 mg 10/15/19 16:20 10/15/19 20:36 Melatonin PO 6 mg HS PRN Administration Insomnia Trazodone HCl 50 mg 10/14/19 21:00 10/15/19 20:36 Desyrel PO 50 mg HS VERÓNICA Administration - Exam General Appearance: NAD, awake alert Neck: no JVD Heart: no murmur, no gallops, no rubs, irregular Heart - other findings: converted to atrial fibrillation this morning based on telemetry Gastrointestinal: soft, non-tender, non-distended, normal bowel sounds Extremities - other findings: left LE edema about clean dressing Psychiatric: normal affect, normal behavior, A&O x 3 Hosp A/P - Plan #nonhealing foot ulcer s/p debridment -pending additional eval by Dr. Perea -remains febrile (10/14) despite proper coverage based on susceptibilities and negative blood culture; -continue Abx -if spikes another fever, additional infectious workup #mild asymptomatic acute hyponatremia (resolved) #T2DM -poorly controlled -adjusted diabetic regimen (10/15) ELOS: 2 midnights pending placement in half-way assuming fever resolves
[2019-10-16] MEDS: Acetaminophen 325 MG TAB PO PRN ×2 (15:36→20:58)
--- NOTE | 2019-10-16 17:59 | PRG ---
DATE OF SERVICE: 10/16/2019 SUBJECTIVE: Mr. Tracy is postoperative day #2 from debridement of his right foot 6 x 4 cm ulcer. He has a wound VAC intact on it today. He has no complaints. PHYSICAL EXAMINATION: VITAL SIGNS: His maximum temperature is 100.1 today, yesterday was 101.2. Pulse is 98. Blood pressure 140/83. Physical examination was performed with no significant changes. He has a wound VAC intact on his right foot ulcer. LABORATORY DATA: He did not have a CBC today. His basic metabolic panel reveals persistent creatinine elevation of 1.4 and is otherwise normal. His blood sugars remain elevated between 208 and 265. ASSESSMENT: He is stable from a Surgical standpoint. CBC was ordered for tomorrow, and I will check that. His wound VAC will be changed tomorrow, and I will examine his wound with Wound Care Team. I do not think that he is an appropriate candidate for discharge back to his home living situation in his trailer. I think that arrangements should be made for him to go to a penitentiary facility or rehabilitation facility for continued wound care. It was hoped that he has enough blood inflow that he can heal from this ulcer and avoid a below-knee amputation. Job ID: [id number]
[2019-10-16] MEDS: Enoxaparin Sodium 100 MG/ML SYRINGE SC SCH (20:57)
[2019-10-16] MEDS: traZODone HCl 50 MG TAB PO SCH (20:58)
[2019-10-16] MEDS: Melatonin 3 MG TAB PO PRN (20:58)
[2019-10-16] MEDS ORDERED: Insulin Glargine 40 UNITS in Pre-Filled Syringe 1 EACH SC SCH (21:00)
[2019-10-16] MEDS ORDERED: Enoxaparin Sodium 80 MG/0.8 ML SYRINGE SC SCH (21:00)
[2019-10-16 21:02] LABS: Vancomycin, Trough 18.6 ug/mL
[2019-10-17 04:32] LABS: #Basophils 0.1 thou/uL (0.0-0.2); #Eosinphils 0.3 thou/uL (0.0-0.7); #Lymphocytes 2.9 thou/uL (1.20-3.40); #Monocytes 0.9 thou/uL (0.11-0.59); #Neutrophils 6.2 thou/uL (1.40-6.50); %Basophils 0.7 % (0.0-1.0); %Eosinophils 3.4 % (0.0-10.0); %Lymphocytes 27.7 % (21.0-51.0); %Monocytes 8.8 % (0.0-10.0); %Neutrophils 59.4 % (42.0-75.0); Hemoglobin 10.2 g/dL (14.0-18.0); Mean Corpuscular HGB CONC 32.9 g/dL (32.0-36.0); Mean Corpuscular Hemoglobin 29.9 pg (27.0-31.0); Mean Corpuscular Volume 90.9 fL (78.0-98.0); Mean Platelet Volume 7.6 fL (7.4-10.4); Platelet Count 394 thou/uL (130-400); RBC Distribution Width 13.3 % (11.5-14.5); White Blood Cell (WBC) Count 10.4 thou/uL (4.8-10.8)
[2019-10-17 05:16] LABS: Anion Gap 12 mmol/L (10-20); BUN (Urea Nitrogen) 12 mg/dL (8.4-25.7); Calc. Creatinine Clearance 65 mL/min (70-130); Calcium 8.8 mg/dL (7.8-10.44); Carbon Dioxide 25 mmol/L (23-31); Chloride 103 mmol/L (98-107); Estimated GFR-MDRD 49; Glucose 196 mg/dL (80-115); Potassium 3.3 mmol/L (3.5-5.1); Sodium 137 mmol/L (136-145)
[2019-10-17] MEDS: HumaLOG 300 UNITS/3 ML VIAL SC PRN (05:52)
--- NOTE | 2019-10-17 07:10 | EKG ---
Test Reason : Blood Pressure : / mmHG Vent. Rate : 086 BPM Atrial Rate : 086 BPM P-R Int : 126 ms QRS Dur : 090 ms QT Int : 430 ms P-R-T Axes : 055 040 108 degrees QTc Int : 514 ms Sinus rhythm with Premature supraventricular complexes Nonspecific ST and T wave abnormality Prolonged QT Abnormal ECG When compared with ECG of 12-OCT-2019 21:18, T wave inversion less evident in Anterior leads QT has lengthened Confirmed by DR. Leonardo VASQUEZ ([id number]) on 10/17/2019 7:10:25 AM Referred By: LISANDRA Confirmed By:DR. Leonardo VASQUEZ
--- NOTE | 2019-10-17 07:36 | CON ---
DATE OF CONSULTATION: HISTORY OF PRESENT ILLNESS: This is a 69-year-old gentleman with a history of peripheral vascular disease, who has had a previous right femoral-popliteal with Sherrill-James. Last month, he developed a blister on his right foot that did not heal over the ensuing month and was seen and underwent angiography, where he was found to have a patent femoral-popliteal graft with about a 90% stenosis in the [place]hoe popliteal artery distally. This was treated with a 6 mm stent, Plavix therapy. The patient was discharged home and returned with a necrotizing foot infection. PAST MEDICAL HISTORY: Includes diabetes mellitus, hypertension, arthritis, diabetic nephropathy, previous lung cancer, arthritis, and sleep apnea. PAST SURGICAL HISTORY: Exploratory laparoscopy for , coronary bypass grafting in 2007 in [place], previous bilobectomy on the right in 2018, previous right leg bypass, and previous left leg atherectomy via percutaneous approach. SOCIAL HISTORY: He has not smoked in more than 10 years. He lives alone in a mobile home. ALLERGIES: PENICILLIN. MEDICATIONS: Include, 1. Levemir insulin twice a day. 2. Aspirin a day. 3. Plavix 75 a day. 4. Venlafaxine 75 mg b.i.d. 5. Gabapentin 600 t.i.d. PHYSICAL EXAMINATION: GENERAL: He is alert, cooperative gentleman, in no distress. NECK: No carotid bruits. CARDIAC: Systolic murmur, right upper sternal border. Irregular rhythm. LUNGS: Clear to auscultation. CHEST: Healed right thoracotomy scar. ABDOMEN: Healed midline scar. EXTREMITIES: Palpable femoral pulses as well as a right popliteal pulse. He has at least biphasic anterior tibial signal in the distal anterior compartment. He has dressings on the right foot. PLAN: At this time, it appears that the patient's femoral-popliteal graft and stented area are both patent. He only had single-vessel runoff via the anterior tibial at the time of angiography. I do not think repeat intervention is needed at this time and would do local wound care for his foot infection. Continue aspirin and Plavix. Job ID: [id number]
--- NOTE | 2019-10-17 09:29 | ULT ---
RIGHT LOWER EXTREMITY VASCULAR ULTRASOUND: HISTORY: Evaluate patent right femoropopliteal graft. COMPARISON: None. TECHNIQUE: Grayscale, color flow, Doppler imaging and spectral waveform analysis was performed of the right lowe r extremity femoropopliteal graft. FINDINGS: There is patency and flow in the right femoropopliteal graft. There is evidence of biphasic flow of t he femoropopliteal graft at the common femoral artery, triphasic flow involving the proximal graft, monophasic flow involving the midportion of the graft and triphasic flow in the distal portion of the graft. There is monophasic flow in the graft near the anastomosis with the popliteal artery. The popliteal artery has monophasic flow. IMPRESSION: Patent right femoropopliteal graft. There is evidence of monophasic flow in the midportion of the gra ft as well as the graft anastomosis near the popliteal artery. Transcribed Date/Time: 10/17/2019 10:07 AM
[2019-10-17] MEDS: Aspirin 81 mg Enteric Coated Tablet PO SCH (09:53)
[2019-10-17] MEDS: Clopidogrel Bisulfate 75 MG TAB PO SCH (09:53)
[2019-10-17] MEDS: Enoxaparin Sodium 100 MG/ML SYRINGE SC SCH ×2 (09:53→21:41)
[2019-10-17] MEDS: Amlodipine 10 MG TAB PO SCH (09:53)
[2019-10-17] MEDS: HumaLOG 300 UNITS/3 ML VIAL SC SCH ×4 (09:54→18:16)
[2019-10-17] MEDS: Gabapentin 400 MG CAP PO SCH ×3 (09:54→21:42)
[2019-10-17] MEDS: Vancomycin 1 GM in Premix Bag 1 BAG IVPB SCH ×2 (09:55→21:44)
[2019-10-17] MEDS ORDERED: Insulin Glargine 50 UNITS in Pre-Filled Syringe 1 EACH SC SCH (11:37)
[2019-10-17] MEDS ORDERED: Insulin Glargine 10 UNITS in Pre-Filled Syringe 1 EACH SC SCH (11:45)
[2019-10-17] MEDS: Potassium Chloride 20 MEQ TAB PO SCH ×2 (12:30→17:04)
[2019-10-17] MEDS: cefTRIAXone\\ROCEPHIN 1 GM in Sodium Chloride 0.9% 100 ML IVPB SCH (13:27)
--- NOTE | 2019-10-17 13:38 | PRG ---
DATE OF SERVICE: 10/17/2019 SUBJECTIVE: Mr. Tracy is seen today in his bed on the telemetry floor along with the Wound Care Team. He is postoperative day #3 from a debridement of his right foot ulcer. The wound VAC was removed today for examination. There is obvious slough along the superior aspect of the wound and in the undermined segment. I extended the incision anteriorly/proximally without anesthetic. He is entirely insensate to interventions on his foot and does not feel the incision at all. The remainder of the tissue was sharply debrided using the scalpel and scissors, removing skin, subcutaneous tissue, and muscle. The skin edge was bleeding somewhat dark blood. I therefore packed with gauze. Wound Care Team will place a gauze dressing today and resume VAC dressing change tomorrow. The patient has no complaints. PHYSICAL EXAMINATION: VITAL SIGNS: He is afebrile, although his temperature earlier today was 100.1, pulse is 80, and blood pressure 124/59. Remainder of examination is unremarkable. Examination of his foot is as detailed in the history of present illness, although most of the wound is clean and there is less swelling of the foot, there is still substantial devitalized tissue. No bone is actually exposed, although there is minimal tissue overlying the bone of the midfoot. LABORATORY DATA: White blood cell count has decreased and down to 10.4 with a hemoglobin of 10.2. Chemistries reveal persistent elevation of creatinine at 1.4 and elevation of glucose of 226. ASSESSMENT: The patient is stable. Wound continues to be cared for. He continues on IV antibiotics and wound care and weightbearing restrictions. I will see the wound again in a couple of days for consideration of further debridement. As mentioned previously, I think he would be an appropriate candidate for placement in a facility as I do not believe he will be able to care for himself/this wound appropriately in his home environment. Job ID: [id number]
--- NOTE | 2019-10-17 14:05 | PDOC.HOSPP ---
- Subjective Encounter Date: 10/17/19 Encounter Time: 10:00 Subjective: no overnight events. this morning feels well and denies chills or night sweats. peripheral burning pain resolved. pending placement - Objective Vital Signs & Weight: Vital Signs (12 hours) Temp Pulse Resp BP Pulse Ox 10/17/19 12:05 97.8 F 80 18 124/59 L 98 10/17/19 11:00 100.1 F H 94 20 125/67 95 10/17/19 07:05 98.5 F 94 20 123/60 93 L 10/17/19 04:00 98.4 F 93 18 161/65 H 95 Weight Admit Weight 197 lb 3.2 oz Weight 203 lb 1.6 oz I&O: 10/16/19 10/17/19 10/18/19 06:59 06:59 06:59 Intake Total 3220 1640 Output Total 3325 1475 Balance -105 165 Result Diagrams: 10/17/19 03:54 10/17/19 03:54 Additional Labs: Accuchecks 10/17/19 10/17/19 10/16/19 10:25 05:47 20:22 POC Glucose 226 H 209 H 221 H 10/16/19 16:16 POC Glucose 208 H Hospitalist ROS - Review of Systems Constitutional: denies: fever, chills, sweats, weakness, malaise, other Respiratory: denies: cough, dry, shortness of breath, hemoptysis, SOB with excertion, pleuritic pain, sputum, wheezing, other Cardiovascular: denies: chest pain, palpitations, orthopnea, paroxysmal noc. dyspnea, edema, light headedness, other Gastrointestinal: denies: nausea, vomiting, abdominal pain, diarrhea, constipation, melena, hematochezia, other Genitourinary: denies: dysuria, frequency, incontinence, hematuria, retention, other - Medication Medications: Active Medications Generic Name Dose Route Start Last Admin Trade Name Freq PRN Reason Stop Dose Admin Acetaminophen 650 mg 10/12/19 23:52 10/16/19 20:58 Tylenol PO 650 mg Q4H PRN Administration Headache/Fever/Mild Pain (1-3) Hydrocodone Bitart/Acetaminophen 2 tab 10/12/19 23:52 10/13/19 20:54 [place] 5/325 PO 2 tab Q4H PRN Administration Severe Pain (7-10) Amlodipine Besylate 10 mg 10/14/19 09:00 10/17/19 09:53 Norvasc PO 10 mg DAILY VERÓNICA Administration Aspirin 81 mg 10/13/19 09:00 10/17/19 09:53 Ecotrin PO 81 mg DAILY VERÓNICA Administration Clopidogrel Bisulfate 75 mg 10/15/19 09:00 10/17/19 09:53 Plavix PO 75 mg DAILY VERÓNICA Administration Enoxaparin Sodium 90 mg 10/16/19 21:00 10/17/19 09:53 Lovenox SC 90 mg 0900,2100 VERÓNICA Administration Gabapentin 800 mg 10/14/19 21:00 10/17/19 09:54 Neurontin PO 800 mg TID VERÓNICA Administration Hypromellose 0 gm 10/14/19 19:18 10/15/19 08:42 Systane Gel EA EYE 1 drop Q6H PRN Administration Dry Eyes Vancomycin HCl 1 gm/ Device 200 mls @ 200 mls/hr 10/15/19 21:00 10/17/19 09: 55 IVPB 200 mls Q12HR VERÓNICA Administration Ceftriaxone Sodium 1 gm/ 100 mls @ 200 mls/hr 10/15/19 10:00 10/17/19 13:27 Sodium Chloride IVPB 100 mls Q24HR VERÓNICA Administration Insulin Human Lispro 0 units 10/13/19 00:00 10/17/19 05:52 Humalog SC 6 unit .AGGRESSIVE SLIDING PRN Administration Aggressive Correctional Scale Insulin Human Lispro 0 units 10/13/19 00:00 10/16/19 20:58 Humalog SC 2 unit .BEDTIME SLIDING SC PRN Administration Bedtime Correctional Scale Insulin Human Lispro 17 units 10/17/19 12:00 10/17/19 12:30 Humalog SC 17 unit TID-WM VERÓNICA Administration Melatonin 6 mg 10/15/19 16:20 10/16/19 20:58 Melatonin PO 6 mg HS PRN Administration Insomnia Potassium Chloride 40 meq 10/17/19 13:00 10/17/19 12:30 K-Dur PO 10/17/19 17:01 40 meq Q4HR VERÓNICA Administration Trazodone HCl 50 mg 10/14/19 21:00 10/16/19 20:58 Desyrel PO 50 mg HS VERÓNICA Administration - Exam General Appearance: NAD, awake alert Neck: no JVD Heart: RRR, no murmur, no gallops, no rubs Respiratory: CTAB, no wheezes, no rales, no ronchi Gastrointestinal: soft, non-tender, non-distended, normal bowel sounds Extremities - other findings: clean dressings over both feet; wound vac no drainage Hosp A/P - Plan #nonhealing foot ulcer s/p debridment -pending additional eval by Dr. Perea -afebrile since 10/14 -continue Abx #atrial fibrillation rate controlled on lovenox will transition to eliquis on DC #T2DM -poorly controlled -adjusted diabetic regimen (10/16) ELOS: 1 midnight pending placement in alf
[2019-10-17 15:17] LABS: Hemoglobin 9.8 g/dL (14.0-18.0); Platelet Count 419 thou/uL (130-400)
--- NOTE | 2019-10-17 16:20 | PQF ---
DATE: 10-17-19 ATTN: YAJAIRA BILLINGS Please exercise your independent, professional judgment in responding to the clarification form. Clinical indicators are provided on the bottom of this form for your review Please check appropriate box(es): [ ] Sepsis present on admission [ x ] Sepsis NOT present on admission [ ] Unable to determine [ ] SIRS due to non-infectious process (please specify etiology) [ ] Localized infection without sepsis [ ] Other diagnosis [ ] Unable to determine For continuity of documentation, please document condition throughout progress notes and discharge summary. Thank You. CLINICAL INDICATORS - SIGNS / SYMPTOMS / LABS / RESULTS AND LOCATION IN MR: ER DX: 10-12-19: FOOT CELLULITIS, CHEST PAIN, UNSPEC, DIABETIC FOOT ULCER TEMP ER: 100.1, 99.1, PT FOUND DOWN, FEVER, WEAKNESS, FATIGUE, SOB, TEMP OF 103.4 TODAY, REPORTS PCP SENT HIM IN SOME ANTIBIOTICS TODAY BUT HE DID NOT PICK THEM UP. H&P 10-17-19: NONHEALING DIABETIC FOOT ULCER, RIGHT FOOT CELLULITIS, HYPONATREMIA, KINSEY, DM 2, TEMP: 10-14-19: 100.1, 100.3, 102.8 WBC: 10-12-19: 18.8, 10-13-19: 15.0 10-14-19: 12.0 CRP: 10-12-19: 9.11 RISK FACTORS / RESULTS AND LOCATION IN MR: ER DX: 10-12-19: FOOT CELLULITIS, CHEST PAIN, UNSPEC, DIABETIC FOOT ULCER TEMP ER: 100.1, 99.1, PT FOUND DOWN, FEVER, WEAKNESS, FATIGUE, SOB, TEMP OF 103.4 TODAY, REPORTS PCP SENT HIM IN SOME ANTIBIOTICS TODAY BUT HE DID NOT PICK THEM UP. H&P 10-17-19: NONHEALING DIABETIC FOOT ULCER, RIGHT FOOT CELLULITIS, HYPONATREMIA, KINSEY, DM 2, TREATMENTS / RESULTS AND LOCATION IN MR: ER NOTES 10-12-19: VANCOMYCIN IV, CEFEPIME IV (This form is maintained as a part of the permanent medical record) 2014 [employer] All Rights Reserved [email or web address]
[2019-10-17] MEDS ORDERED: Insulin Glargine 40 UNITS in Pre-Filled Syringe 1 EACH SC SCH (21:00)
[2019-10-17] MEDS: traZODone HCl 50 MG TAB PO SCH (21:43)
[2019-10-17] MEDS: HYDROcodone/Acetaminophen 5/325 mg Tablet PO PRN (21:43)
[2019-10-17] MEDS: Melatonin 3 MG TAB PO PRN (21:46)
[2019-10-17] MEDS: SYSTANE GEL EYE DROP 10 ML (10 GM) BOT EA EYE PRN (21:47)
[2019-10-18 05:35] LABS: #Basophils 0.1 thou/uL (0.0-0.2); #Eosinphils 0.5 thou/uL (0.0-0.7); #Lymphocytes 3.4 thou/uL (1.20-3.40); #Monocytes 1.2 thou/uL (0.11-0.59); #Neutrophils 5.6 thou/uL (1.40-6.50); %Basophils 0.5 % (0.0-1.0); %Eosinophils 4.4 % (0.0-10.0); %Lymphocytes 31.3 % (21.0-51.0); %Monocytes 11.5 % (0.0-10.0); %Neutrophils 52.2 % (42.0-75.0); Mean Corpuscular Hemoglobin 30.1 pg (27.0-31.0); Mean Corpuscular Volume 91.3 fL (78.0-98.0); Mean Platelet Volume 7.5 fL (7.4-10.4); Platelet Count 434 thou/uL (130-400); RBC Distribution Width 13.3 % (11.5-14.5); Red Blood Cell (RBC) Count 3.32 mill/uL (4.70-6.10); White Blood Cell (WBC) Count 10.7 thou/uL (4.8-10.8)
[2019-10-18 05:58] LABS: Anion Gap 12 mmol/L (10-20); BUN (Urea Nitrogen) 14 mg/dL (8.4-25.7); Calc. Creatinine Clearance 59 mL/min (70-130); Calcium 8.7 mg/dL (7.8-10.44); Carbon Dioxide 29 mmol/L (23-31); Chloride 102 mmol/L (98-107); Estimated GFR-MDRD 46; Glucose 169 mg/dL (80-115); Potassium 3.9 mmol/L (3.5-5.1); Sodium 139 mmol/L (136-145)
[2019-10-18 08:38] LABS: Vancomycin, Trough 15.7 ug/mL
[2019-10-18] MEDS: Amlodipine 10 MG TAB PO SCH (08:46)
[2019-10-18] MEDS: Clopidogrel Bisulfate 75 MG TAB PO SCH (08:46)
[2019-10-18] MEDS: Gabapentin 400 MG CAP PO SCH ×3 (08:46→20:57)
[2019-10-18] MEDS: Vancomycin 1 GM in Premix Bag 1 BAG IVPB SCH ×2 (08:47→21:01)
[2019-10-18] MEDS: Aspirin 81 mg Enteric Coated Tablet PO SCH (08:49)
[2019-10-18] MEDS: HumaLOG 300 UNITS/3 ML VIAL SC SCH ×3 (08:55→18:01)
[2019-10-18] MEDS: Enoxaparin Sodium 100 MG/ML SYRINGE SC SCH ×2 (10:40→20:57)
[2019-10-18] MEDS: cefTRIAXone\\ROCEPHIN 1 GM in Sodium Chloride 0.9% 100 ML IVPB SCH (12:44)
--- NOTE | 2019-10-18 13:54 | SPC ---
Exam: Left upper extremity PICC line with ultrasound guidance HISTORY: Infection. IV antibiotics required. Exposure: 0.3 minutes, 2401 mGy^cm2 FINDINGS: Successful left upper surgery PICC line placement. Single-lumen 5 Japanese catheter terminate s over the cavoatrial junction. 47 cm trim length. TECHNIQUE: Consent obtained to perform a ultrasound-guided left upper extremity PICC line placement.. Left arm was prepped and draped in a sterile fashion. 1% lidocaine, buffered with sodium bicarbonate was used for local anesthesia. Under sonographic guidance, 22-gauge spinal needle was use d to cannulate the brachial vein. A 0.018 guidewire was advanced to the level of the superior vena cava. Under fluoroscopy, the wire was advanced into the inferior vena cava to document venous access. Wire was subsequently pulled back to the cavoatrial junction. Tract dilatation was performed. 47 cm single-lumen catheter was advanced over the wire. Wire was removed. Catheter flushes and aspirates without difficulty IMPRESSION: Successful left upper extremity PICC line placement with ultrasound guidance Transcribed Date/Time: 10/18/2019 1:59 PM
[2019-10-18] MEDS: HumaLOG 300 UNITS/3 ML VIAL SC PRN (14:30)
--- NOTE | 2019-10-18 14:56 | PDOC.HOSPP ---
- Subjective Encounter Date: 10/18/19 Encounter Time: 09:00 Subjective: no overnight events. this morning, feeling well and has no complaints. Pending placement - Objective Vital Signs & Weight: Vital Signs (12 hours) Temp Pulse Resp BP BP Pulse Ox 10/18/19 13:06 98.9 F 87 13 125/77 93 L 10/18/19 08:46 90 122/74 10/18/19 07:40 98 F 90 13 122/74 95 10/18/19 03:25 98.7 F 78 18 127/68 95 Weight Admit Weight 197 lb 3.2 oz Weight 197 lb 12.8 oz I&O: 10/17/19 10/18/19 10/19/19 06:59 06:59 06:59 Intake Total 1640 1600 Output Total 1475 1660 Balance 165 -60 Result Diagrams: 10/18/19 04:33 10/18/19 04:33 Additional Labs: Accuchecks 10/18/19 10/18/19 10/18/19 14:18 10:26 05:55 POC Glucose 242 H 318 H 200 H 10/17/19 10/17/19 20:19 16:38 POC Glucose 193 H 158 H Hospitalist ROS - Review of Systems Constitutional: denies: fever, chills, sweats, weakness, malaise, other Respiratory: denies: cough, dry, shortness of breath, hemoptysis, SOB with excertion, pleuritic pain, sputum, wheezing, other Cardiovascular: denies: chest pain, palpitations, orthopnea, paroxysmal noc. dyspnea, edema, light headedness, other Gastrointestinal: denies: nausea, vomiting, abdominal pain, diarrhea, constipation, melena, hematochezia, other - Medication Medications: Active Medications Generic Name Dose Route Start Last Admin Trade Name Freq PRN Reason Stop Dose Admin Acetaminophen 650 mg 10/12/19 23:52 10/16/19 20:58 Tylenol PO 650 mg Q4H PRN Administration Headache/Fever/Mild Pain (1-3) Hydrocodone Bitart/Acetaminophen 2 tab 10/12/19 23:52 10/17/19 21:43 [place] 5/325 PO 2 tab Q4H PRN Administration Severe Pain (7-10) Amlodipine Besylate 10 mg 10/14/19 09:00 10/18/19 08:46 Norvasc PO 10 mg DAILY VERÓNICA Administration Aspirin 81 mg 10/13/19 09:00 10/18/19 08:49 Ecotrin PO 81 mg DAILY VERÓNICA Administration Clopidogrel Bisulfate 75 mg 10/15/19 09:00 10/18/19 08:46 Plavix PO 75 mg DAILY VERÓNICA Administration Enoxaparin Sodium 90 mg 10/16/19 21:00 10/18/19 10:40 Lovenox SC Not Given 0900,2100 [facility] Gabapentin 800 mg 10/14/19 21:00 10/18/19 14:30 Neurontin PO 800 mg TID VERÓNICA Administration Hypromellose 0 gm 10/14/19 19:18 10/17/19 21:47 Systane Gel EA EYE 2 drop Q6H PRN Administration Dry Eyes Vancomycin HCl 1 gm/ Device 200 mls @ 200 mls/hr 10/15/19 21:00 10/18/19 08: 47 IVPB 200 mls Q12HR VERÓNICA Administration Ceftriaxone Sodium 1 gm/ 100 mls @ 200 mls/hr 10/15/19 10:00 10/18/19 12:44 Sodium Chloride IVPB 100 mls Q24HR VERÓNICA Administration Insulin Human Lispro 0 units 10/13/19 00:00 10/18/19 14:30 Humalog SC 6 unit .AGGRESSIVE SLIDING PRN Administration Aggressive Correctional Scale Insulin Human Lispro 0 units 10/13/19 00:00 10/16/19 20:58 Humalog SC 2 unit .BEDTIME SLIDING SC PRN Administration Bedtime Correctional Scale Insulin Human Lispro 17 units 10/17/19 12:00 10/18/19 12:45 Humalog SC 17 unit TID-WM VERÓNICA Administration Melatonin 6 mg 10/15/19 16:20 10/17/19 21:46 Melatonin PO 6 mg HS PRN Administration Insomnia Trazodone HCl 50 mg 10/14/19 21:00 10/17/19 21:43 Desyrel PO 50 mg HS VERÓNICA Administration - Exam General Appearance: NAD, awake alert Neck: no JVD Heart: RRR, no murmur, no gallops, no rubs Respiratory: CTAB, no wheezes, no rales, no ronchi Gastrointestinal: soft, non-tender, non-distended, normal bowel sounds Extremities - other findings: unchanged Psychiatric: normal affect, normal behavior, A&O x 3 Hosp A/P - Plan #nonhealing foot ulcer s/p debridment -pending additional eval by Dr. Perea -afebrile since 10/14 -PICC placed pending DC; continue Abx (total 14 days) #atrial fibrillation rate controlled on lovenox will transition to eliquis on DC #T2DM -poorly controlled -adjusted diabetic regimen (10/16) ELOS: 1-2 midnights pending placement in residential
[2019-10-18] MEDS: traZODone HCl 50 MG TAB PO SCH (20:57)
[2019-10-18] MEDS: Melatonin 3 MG TAB PO PRN (20:59)
[2019-10-18] MEDS ORDERED: Insulin Glargine 50 UNITS in Pre-Filled Syringe 1 EACH SC SCH (21:00)
[2019-10-19] MEDS: HumaLOG 300 UNITS/3 ML VIAL SC SCH ×3 (08:59→18:32)
[2019-10-19] MEDS: Vancomycin 1 GM in Premix Bag 1 BAG IVPB SCH ×2 (08:59→20:36)
[2019-10-19] MEDS: Enoxaparin Sodium 100 MG/ML SYRINGE SC SCH ×2 (09:00→20:36)
[2019-10-19] MEDS: Clopidogrel Bisulfate 75 MG TAB PO SCH (09:03)
[2019-10-19] MEDS: Aspirin 81 mg Enteric Coated Tablet PO SCH (09:03)
[2019-10-19] MEDS: Gabapentin 400 MG CAP PO SCH ×3 (09:03→20:36)
[2019-10-19] MEDS: Amlodipine 10 MG TAB PO SCH (09:03)
[2019-10-19] MEDS: cefTRIAXone\\ROCEPHIN 1 GM in Sodium Chloride 0.9% 100 ML IVPB SCH (10:58)
[2019-10-19] MEDS: HumaLOG 300 UNITS/3 ML VIAL SC PRN (10:59)
[2019-10-19 13:04] VITALS: BMI 29.2
--- NOTE | 2019-10-19 13:38 | ULT ---
BILATERAL LOWER EXTREMITY VENOUS DOPPLER ULTRASOUND: 10/19/19 COMPARISON: None. HISTORY: Bilateral lower extremity edema, swelling, assess for DVT. TECHNIQUE: Multiplanar keller scale sonographic imaging of the venous structures of bilateral lower extremities ob tained with color flow and spectral analysis. FINDINGS: Bilateral common femoral veins, greater saphenous veins, profunda femoral veins, femoral veins, popli teal veins, and posterior tibial veins are patent. Normal blood flow, augmentation and compression wi thin the deep venous system bilaterally with no evidence for DVT on either side. IMPRESSION: No evidence for deep venous thrombosis of either lower extremity. POS: [facility]
--- NOTE | 2019-10-19 13:55 | PDOC.HOSPP ---
- Subjective Encounter Date: 10/19/19 Encounter Time: 10:00 Subjective: overnight, additional fever. This morning, per nurse, wound care team assessed wound which looks infected so wound vac restarted. Has no complaints - Objective Vital Signs & Weight: Vital Signs (12 hours) Temp Pulse Resp BP BP Pulse Ox 10/19/19 11:17 98.4 F 80 16 138/73 98 10/19/19 09:03 79 124/59 L 10/19/19 07:20 97.6 F 79 14 124/59 L 96 10/19/19 03:39 99.2 F 77 18 116/58 L 93 L Weight Admit Weight 197 lb 3.2 oz Weight 197 lb 9.6 oz I&O: 10/18/19 10/19/19 10/20/19 06:59 06:59 06:59 Intake Total 1600 820 237 Output Total 1660 1300 600 Balance -60 -480 -363 Result Diagrams: 10/18/19 04:33 10/18/19 04:33 Additional Labs: Accuchecks 10/19/19 10/19/19 10/18/19 10:36 06:09 20:23 POC Glucose 316 H 276 H 151 H 10/18/19 10/18/19 16:58 14:18 POC Glucose 164 H 242 H Hospitalist ROS - Review of Systems Constitutional: denies: chills, sweats Respiratory: denies: cough, dry, shortness of breath Cardiovascular: denies: chest pain, palpitations Gastrointestinal: denies: nausea, vomiting, abdominal pain, diarrhea Genitourinary: denies: dysuria, frequency, incontinence, hematuria - Medication Medications: Active Medications Generic Name Dose Route Start Last Admin Trade Name Freq PRN Reason Stop Dose Admin Acetaminophen 650 mg 10/12/19 23:52 10/16/19 20:58 Tylenol PO 650 mg Q4H PRN Administration Headache/Fever/Mild Pain (1-3) Hydrocodone Bitart/Acetaminophen 2 tab 10/12/19 23:52 10/17/19 21:43 [place] 5/325 PO 2 tab Q4H PRN Administration Severe Pain (7-10) Hydrocodone Bitart/Acetaminophen 1 tab 10/12/19 23:52 10/19/19 13:14 [place] 5/325 PO 1 tab Q4H PRN Administration Moderate Pain (4-6) Amlodipine Besylate 10 mg 10/14/19 09:00 10/19/19 09:03 Norvasc PO 10 mg DAILY VERÓNICA Administration Aspirin 81 mg 10/13/19 09:00 10/19/19 09:03 Ecotrin PO 81 mg DAILY VERÓNICA Administration Clopidogrel Bisulfate 75 mg 10/15/19 09:00 10/19/19 09:03 Plavix PO 75 mg DAILY VERÓNICA Administration Enoxaparin Sodium 90 mg 10/16/19 21:00 10/19/19 09:00 Lovenox SC 90 mg 0900,2100 VERÓNICA Administration Gabapentin 800 mg 10/14/19 21:00 10/19/19 09:03 Neurontin PO 800 mg TID VERÓNICA Administration Hypromellose 0 gm 10/14/19 19:18 10/17/19 21:47 Systane Gel EA EYE 2 drop Q6H PRN Administration Dry Eyes Vancomycin HCl 1 gm/ Device 200 mls @ 200 mls/hr 10/15/19 21:00 10/19/19 08: 59 IVPB 200 mls Q12HR VERÓNICA Administration Ceftriaxone Sodium 1 gm/ 100 mls @ 200 mls/hr 10/15/19 10:00 10/19/19 10:58 Sodium Chloride IVPB 100 mls Q24HR VERÓNICA Administration Insulin Glargine 50 units/ 0.5 mls @ 0 mls/hr 10/18/19 21:00 10/18/19 20:56 Miscellaneous Medication SC 0.5 mls HS VERÓNICA Administration Insulin Human Lispro 0 units 10/13/19 00:00 10/19/19 10:59 Humalog SC 11 unit .AGGRESSIVE SLIDING PRN Administration Aggressive Correctional Scale Insulin Human Lispro 0 units 10/13/19 00:00 10/16/19 20:58 Humalog SC 2 unit .BEDTIME SLIDING SC PRN Administration Bedtime Correctional Scale Insulin Human Lispro 17 units 10/17/19 12:00 10/19/19 13:03 Humalog SC 17 unit TID-WM VERÓNICA Administration Melatonin 6 mg 10/15/19 16:20 10/18/19 20:59 Melatonin PO 6 mg HS PRN Administration Insomnia Trazodone HCl 50 mg 10/14/19 21:00 10/18/19 20:57 Desyrel PO 50 mg HS VERÓNICA Administration - Exam General Appearance: NAD, awake alert Neck: no JVD Heart: RRR, no murmur, no gallops, no rubs Respiratory: CTAB, no wheezes, no rales, no ronchi Gastrointestinal: soft, non-tender, non-distended, normal bowel sounds Extremities - other findings: RLE edema > LLE; dressing over feet Psychiatric: normal affect, normal behavior, A&O x 3 Hosp A/P - Plan #nonhealing foot ulcer s/p debridment -febrile 100.4F 10/17; likely due to nonhealing wound -PICC placed pending DC; continue Abx (total 14 days) -Please inform primary physician when wound care removes dressing to assess wound -swelling in RLE likely due to infected wound; would obtain doppler -Pending surgery evaluation #atrial fibrillation rate controlled on lovenox will transition to eliquis on DC #T2DM -poorly controlled -adjusted diabetic regimen (10/17) ELOS: 2 nights due to infected wound
[2019-10-19] MEDS ORDERED: Insulin Glargine 55 UNITS in Pre-Filled Syringe 1 EACH SC SCH (14:00)
--- NOTE | 2019-10-19 14:19 | PRG ---
DATE OF SERVICE: 10/19/2019 SUBJECTIVE: Mr. Tracy remains in his bed on the telemetry floor. He still has a large open wound on the medial aspect of his right foot. He has been evaluated from a vascular standpoint by Dr. 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 Cultures from when he arrived revealed Enterococcus and Klebsiella. These are currently being treated with vancomycin and ceftriaxone respectively. These are both however adequately covered with oral antibiotics using Augmentin and Bactrim or ciprofloxacin. I last treated his wound 2 days ago and opened it further proximally. A large volume of subcutaneous nonviable slough was sharply debrided. Today, there does not appear to be requirement for further debridement. The wound is very slow to make progress. There is, however, no obvious infection or necrosis. He does note some swelling in his leg that can be potentially concerning for osteomyelitis, but at this point, there still does not appear to be any exposed bone. He is certainly at risk for bone involvement as there is a thin layer of tissue covering the bone. If there is osteomyelitis at this level, I suspect he would require below-knee amputation as he does not have a great vascularity at this level and Dr. Perea does not really think it can be improved. ASSESSMENT: The patient with stable large right foot wound. PLAN: Place wound VAC today. He is stable for discharge at anytime to fpc/fdc facility. He will continue with wound VAC dressing changes. He should maximize his nutrition, control his diabetes (his hemoglobin A1c was 11 when he was admitted) and I will be happy to see him in 2 weeks. If the wound does not make progress or if he deteriorates, then as mentioned, I suspect he will need a below-knee amputation. Please arrange followup with my office in 2 weeks when he is discharged. Job ID: [id number]
[2019-10-19] MEDS ORDERED: HumaLOG 300 UNITS/3 ML VIAL SC SCH (18:00)
[2019-10-19] MEDS: traZODone HCl 50 MG TAB PO SCH (20:36)
[2019-10-19] MEDS: Melatonin 3 MG TAB PO PRN (20:36)
[2019-10-20] MEDS: HYDROcodone/Acetaminophen 5/325 mg Tablet PO PRN (08:16)
[2019-10-20] MEDS: Gabapentin 400 MG CAP PO SCH (08:18)
[2019-10-20] MEDS: Clopidogrel Bisulfate 75 MG TAB PO SCH (08:18)
[2019-10-20] MEDS: Enoxaparin Sodium 100 MG/ML SYRINGE SC SCH (08:18)
[2019-10-20] MEDS: Aspirin 81 mg Enteric Coated Tablet PO SCH (08:18)
[2019-10-20] MEDS: Amlodipine 10 MG TAB PO SCH (08:18)
[2019-10-20] MEDS: Vancomycin 1 GM in Premix Bag 1 BAG IVPB SCH (08:19)
[2019-10-20] MEDS: HumaLOG 300 UNITS/3 ML VIAL SC SCH ×2 (09:10→11:31)
[2019-10-20] MEDS: cefTRIAXone\\ROCEPHIN 1 GM in Sodium Chloride 0.9% 100 ML IVPB SCH (09:58)
[2019-10-20 12:07] VITALS: BP 134/66; TEMP 97.8
--- NOTE | 2019-10-21 01:17 | DIS ---
DATE OF ADMISSION: 10/12/2019 DATE OF DISCHARGE: 10/20/2019 HOSPITAL COURSE: Mr. Tracy is a 69-year-old male with a medical history of diabetes, who presents with a right foot infected ulcer. General Surgery was consulted and the patient underwent bedside I and D. He was treated with antibiotics based on wound cultures, however, continued to have recurrent low-grade fevers, likely due to slow wound healing or possibly osteomyelitis. Prior to the day of discharge, General Surgery evaluated the wound and agreed that the wound is slow to heal. Wound VAC was replaced and the patient was scheduled to follow up with General Surgery to reassess the wound and possibly further workup osteomyelitis. The patient was discharged to a fci with followup appointments with General Surgery and Infectious Disease. He was hemodynamically stable and had no complaints. PHYSICAL EXAMINATION: VITAL SIGNS: Blood pressure 135/77, temperature 98.5, pulse 79, respiratory rate 18, and oxygen saturation as measured by the comic book writer of this note 96% on room air. GENERAL: Lying comfortably in bed. No apparent distress. HEART: Regular rate and rhythm. No murmurs, gallops, or rubs. LUNGS: Clear to auscultation bilaterally. No wheezing, rales, or rhonchi. GI: Soft, nontender, and nondistended. Normal bowel sounds. EXTREMITIES: Right lower extremity edema greater than the left lower extremity. Wound VAC in place on the right foot. Minimal drainage. PSYCHIATRIC: Proper mood and affect. Alert and oriented x3. MEDICATION LIST: New medications, 1. Vancomycin 1 g IV q.12 hours for 10 more days. 2. Ceftriaxone 1 g IV q.24 hours for 10 more days. 3. Amlodipine 10 mg daily. 4. Aspirin 81 mg daily. 5. Humalog 17 units subcutaneous t.i.d. with meals. 6. Glargine 50 units subcutaneously at bedtime. 7. Melatonin 6 mg p.o. at bedtime p.r.n. insomnia. 8. Eliquis 5 mg p.o. b.i.d. for paroxysmal atrial fibrillation (on discharge, the patient was in sinus rhythm). Modified medications, the patient was on only long-acting insulin prior to admission, which was modified as above mentioned. Discontinued medications, no discontinued medications. Job ID: [id number]
== END 2019-10-20 13:15 | DRG 622 ==
LOC: ERS 20:24 → 2SW 22:54 → 2NO 10-13 16:18
PROVIDERS: ADMIT Specialist; ATTEND Specialist
PROC: 0KBV0ZZ Excision of Right Foot Muscle, Open Approach (ICD-10-PCS; 2019-10-14)
PROC: 0KDV0ZZ Extraction of Right Foot Muscle, Open Approach (ICD-10-PCS; 2019-10-17)
PROC: 02HV33Z Insertion of Infusion Device into Superior Vena Cava, Percutaneous Approach (ICD-10-PCS; principal; 2019-10-18)
PROC: B518ZZA Fluoroscopy of Superior Vena Cava, Guidance (ICD-10-PCS; 2019-10-18)
PROC: B548ZZA Ultrasonography of Superior Vena Cava, Guidance (ICD-10-PCS; 2019-10-18)
DX: E11.621 Type 2 diabetes mellitus with foot ulcer (principal); A41.9 Sepsis, unspecified organism; M86.8X7 Other osteomyelitis, ankle and foot; L03.115 Cellulitis of right lower limb; E87.1 Hypo-osmolality and hyponatremia; Z20.828 Contact with and (suspected) exposure to other viral communicable diseases; E11.69 Type 2 diabetes mellitus with other specified complication; E78.5 Hyperlipidemia, unspecified; E11.51 Type 2 diabetes mellitus with diabetic peripheral angiopathy without gangrene; I25.10 Atherosclerotic heart disease of native coronary artery without angina pectoris; I50.9 Heart failure, unspecified; L97.519 Non-pressure chronic ulcer of other part of right foot with unspecified severity; N17.9 Acute kidney failure, unspecified; I11.0 Hypertensive heart disease with heart failure; E11.40 Type 2 diabetes mellitus with diabetic neuropathy, unspecified; B95.2 Enterococcus as the cause of diseases classified elsewhere; E11.65 Type 2 diabetes mellitus with hyperglycemia; I48.91 Unspecified atrial fibrillation; Z28.21 Immunization not carried out because of patient refusal; Z95.5 Presence of coronary angioplasty implant and graft; Z95.1 Presence of aortocoronary bypass graft; Z89.432 Acquired absence of left foot; Z95.828 Presence of other vascular implants and grafts; Z88.0 Allergy status to penicillin; Z87.891 Personal history of nicotine dependence; Z79.899 Other long term (current) drug therapy; Z79.82 Long term (current) use of aspirin; Z79.02 Long term (current) use of antithrombotics/antiplatelets; Z79.4 Long term (current) use of insulin
CPT/HCPCS: 36415; 36416; 36569; 71045; 80048; 80053; 80202; 82553; 83036; 83605; 83735; 83880; 84100; 84484; 85007; 85025; 85027; 85610; 85652; 86140; 87040; 87070; 87077; 87186; 87205; 87635; 93005; 93010; 93926; 93970; 94760; 96365; 96367; C1751; J0692; J0696; J1644; J1650; J1815; J2020; J3370; J3490; J7050; U0003